=== PATIENT | female | born 1975 | race Caucasian/White ===

== ENCOUNTER → 2016-04-06 | Outpatient (CLI) | payer OTHER | LOC: COL.RAD 07:53 | DX: K21.9 Gastro-esophageal reflux disease without esophagitis (principal); R12 Heartburn; R07.89 Other chest pain | CPT/HCPCS: A9541 ==

== ENCOUNTER → 2016-04-10 | Outpatient (CLI) | payer OTHER | LOC: COL.PUL 10:34 | DX: R06.02 Shortness of breath (principal) | CPT/HCPCS: J7674 ==